=== PATIENT | female | born 1955 | race Caucasian/White ===

== ENCOUNTER 2019-07-02 14:35 | Inpatient (IN) | payer OTHER, SELFPAY ==
[2019-07-02 14:42] LABS: O2 DELIVERY DEVICE ROOM AIR
[2019-07-02 15:01] LABS: BICARBONATE,ARTERIAL 19.5 mm/L (22.0-26.0); O2 SATURATION ARTERIAL 80 % (95-98); PCO2 ARTERIAL 29 mm/Hg0 (35-45); PO2 ARTERIAL 41 mm/Hg (80-100)
[2019-07-02 15:16] LABS: CHLORIDE,CL 96 mEq/L (98-106); SODIUM,NA 132 mEq/L (136-145)
[2019-07-02] MEDS ORDERED: Sodium Chloride 0.9% 10 ML Syringe FLUSH PRN (16:24)
[2019-07-02] MEDS ORDERED: Enoxaparin 40 MG/0.4 ML Syringe SUBCUT SCH (16:30)
[2019-07-02] MEDS ORDERED: Iopamidol 755 Mg/ML 100 ML Bottle IVPUSH ONE (16:45)
[2019-07-02] MEDS ORDERED: Fluconazole 100 MG Tab PO SCH (16:45)
[2019-07-02] MEDS: cefTRIAXone 1 GM Vial IVPUSH SCH (17:48)
[2019-07-02] MEDS: Azithromycin 500 MG in Sodium Chloride 0.9% 250 ML IV SCH (17:50)
[2019-07-02] MEDS: Acetaminophen 325 MG Tab PO PRN (17:53)
[2019-07-02] MEDS: Albuterol/Ipratropium 3.0-0.5 MG/3 ML Neb Soln NEB PRN (18:44)
[2019-07-02] MEDS: Pantoprazole 40 MG Vial IVPUSH SCH (19:39)
[2019-07-02] MEDS: Ibuprofen 200 MG Tab PO PRN (20:52)
[2019-07-03] MEDS ORDERED: Sodium Chloride 0.9% 1,000 ML IV ONE (00:30)
[2019-07-03] MEDS: Sodium Chloride 0.9% 1,000 ML IV SCH ×3 (00:31→19:47)
[2019-07-03] MEDS ORDERED: Sodium Chloride 0.9% 1,000 ML IV SCH (04:30)
[2019-07-03] MEDS: Fluconazole 100 MG Tab PO SCH (07:38)
[2019-07-03] MEDS: Pantoprazole 40 MG Vial IVPUSH SCH ×2 (07:38→19:50)
[2019-07-03] MEDS: Albuterol/Ipratropium 3.0-0.5 MG/3 ML Neb Soln NEB PRN ×2 (08:34→19:55)
[2019-07-03] MEDS: cefTRIAXone 1 GM Vial IVPUSH SCH (17:33)
[2019-07-03] MEDS: Azithromycin 500 MG in Sodium Chloride 0.9% 250 ML IV SCH (17:34)
--- NOTE | 2019-07-03 21:05 | PCM.PN ---
- General Info Date of Service: 07/03/19 Admission Dx/Problem (Free Text): Pneumonia Functional Status: Reports: Pain Controlled, Tolerating Diet. Denies: Ambulating - Review of Systems General: Reports: Weakness, Fatigue HEENT: Reports: No Symptoms Pulmonary: Reports: Shortness of Breath, Cough, Sputum Cardiovascular: Denies: Chest Pain, Edema, Lightheadedness Gastrointestinal: Denies: Abdominal Pain, Nausea, Vomiting Genitourinary: Reports: No Symptoms Musculoskeletal: Reports: No Symptoms Skin: Reports: No Symptoms Neurological: Reports: Weakness - Patient Data Vitals - Most Recent: Last Vital Signs Temp 99.2 F 07/03/19 16:00 Pulse 82 07/03/19 16:00 Resp 18 07/03/19 16:00 BP 86/52 L 07/03/19 16:00 Pulse Ox 94 L 07/03/19 16:00 Weight - Most Recent: 138 lb 12.8 oz I&O - Last 24 Hours: Intake & Output 07/03/19 07/03/19 07/03/19 06:59 14:59 22:59 Intake Total 150 1025 1600 Output Total 1050 700 900 Balance -900 325 700 Lab Results Last 24 Hours: Laboratory Results - last 24 hr 07/03/19 07/03/19 07/03/19 Range/Units 07:10 07:10 10:10 WBC 17.7 H (5.0-10.0) 10^3/uL RBC 3.56 L (4.00-5.50) 10^6/uL Hgb 11.1 L (12.0-16.0) g/dL Hct 34.6 L (37.0-47.0) % MCV 97.2 H (82.0-94.0) fL MCH 31.2 (27.0-32.0) pg MCHC 32.1 L (33.0-38.0) g/dL RDW Coeff of Geoff 13.9 (11.0-15.0) % Plt Count 263 (150-400) 10^3/uL Neut % (Auto) 87.0 H (35-85) % Lymph % (Auto) 8.8 L (10-55) % [place] % (Auto) 4.0 (0-16) % Eos % (Auto) 0.1 (0-5) % Baso % (Auto) 0.1 (0-3) % Neut # (Auto) 15.38 H (1.80-7.00) 10^3/uL Lymph # (Auto) 1.56 (1.00-4.80) 10^3/uL [place] # (Auto) 0.71 (0.00-0.80) 10^3/uL Eos # (Auto) 0.01 (0.00-0.45) 10^3/uL Baso # (Auto) 0.01 10^3/uL Sodium 136 (136-145) mEq/L Potassium 3.4 L (3.5-5.0) mEq/L Chloride 102 (98-106) mEq/L Carbon Dioxide 28 (21-32) mmol/L BUN 9 (7-18) mg/dL Creatinine 1.0 (0.6-1.0) mg/dL Est Cr Clr Drug Dosing 44.95 mL/min Estimated GFR (MDRD) 56 L (>=60) mL/min Glucose 88 (75-99) mg/dL Lactic Acid 2.1 H (0.4-2.0) mmol/L Calcium 8.4 (8.4-10.1) mg/dL C-Reactive Protein 19.6 H (0.2-0.8) mg/dL Saleem Results Last 24 Hours: Microbiology 07/02/19 15:42 Aerobic Blood Culture - Preliminary Blood NO GROWTH AFTER 1 DAY Anaerobic Blood Culture - Preliminary NO GROWTH AFTER 1 DAY 07/02/19 15:42 Aerobic Blood Culture - Preliminary Blood NO GROWTH AFTER 1 DAY Anaerobic Blood Culture - Preliminary NO GROWTH AFTER 1 DAY 07/03/19 07:33 Gram Stain - Final Sputum - Expectorated 07/02/19 14:40 Influenza Type A Antigen Screen - Final Nasopharyngeal Swab NEGATIVE INFLUENZA A VIRUS AG REFERENCE RANGE: NEGATIVE Influenza Type B Antigen Screen - Final NEGATIVE INFLUENZA B VIRUS AG REFERENCE RANGE: NEGATIVE Med Orders - Current: Current Medications Acetaminophen (Tylenol) 650 mg PO Q4H PRN PRN Reason: Pain (Mild 1-3)/fever Last Admin: 07/02/19 17:53 Dose: 650 mg Albuterol/Ipratropium (Duoneb 3.0-0.5 Mg/3 Ml) 3 ml NEB Q4H PRN PRN Reason: Shortness Of Breath/wheezing Last Admin: 07/03/19 19:55 Dose: 3 ml Ceftriaxone Sodium (Rocephin) 1 gm IVPUSH Q24H [facility] Stop: 07/08/19 23:00 Last Admin: 07/03/19 17:33 Dose: 1 gm Fluconazole (Diflucan) 100 mg PO DAILY [facility] Stop: 07/07/19 08:01 Last Admin: 07/03/19 07:38 Dose: 100 mg Azithromycin 500 mg/ Sodium (Chloride) 250 mls @ 250 mls/hr IV Q24H [facility] Stop: 07/08/19 17:31 Last Admin: 07/03/19 17:34 Dose: 250 mls/hr Sodium Chloride (Normal Saline) 1,000 mls @ 100 mls/hr IV ASDIRECTED [facility] Last Admin: 07/03/19 19:47 Dose: 100 mls/hr Ibuprofen (Motrin) 400 - 600 mg PO Q6H PRN PRN Reason: Pain/Fever Last Admin: 07/02/19 20:52 Dose: 600 mg Pantoprazole Sodium (Protonix Iv) 40 mg IVPUSH Q12H [facility] Last Admin: 07/03/19 19:50 Dose: 40 mg Sodium Chloride (Saline Flush) 10 ml FLUSH ASDIRECTED PRN PRN Reason: Keep Vein Open Discontinued Medications Enoxaparin Sodium (Lovenox) 40 mg SUBCUT Q24H [facility] Last Admin: 07/02/19 17:07 Dose: Not Given Fluconazole (Diflucan) 100 mg PO DAILY [facility] Stop: 07/06/19 08:01 Last Admin: 07/02/19 17:37 Dose: Not Given Sodium Chloride (Normal Saline) 1,000 mls @ 100 mls/hr IV ASDIRECTED [facility] Iopamidol (Isovue-370 (76%)) 100 ml IVPUSH ONETIME ONE Stop: 07/02/19 16:46 Last Admin: 07/02/19 17:45 Dose: 100 ml - Exam General: Alert, Oriented HEENT: Mucous Membr. Moist/[place] Neck: Supple Lungs: Decreased Breath Sounds, Crackles Cardiovascular: Regular Rate, Regular Rhythm GI/Abdominal Exam: Normal Bowel Sounds, Soft, Non-Tender Extremities: Normal Inspection, No Pedal Edema Skin: Warm, Dry Neurological: No New Focal Deficit Sepsis Event Note - Evaluation Sepsis Screening Result: No Definite Risk - Focused Exam Vital Signs: Vital Signs Temp Pulse Resp BP Pulse Ox 07/03/19 16:00 99.2 F 82 18 86/52 L 94 L 07/03/19 12:00 99.1 F 85 18 82/56 L 95 Date Exam was Performed: 07/03/19 Time Exam was Performed: 21:00 - Problem List & Annotations (1) Pneumonia SNOMED Code(s): 860725111 Code(s): J18.9 - PNEUMONIA, UNSPECIFIED ORGANISM Status: Acute Priority: High Current Visit: Yes Qualifiers: Pneumonia type: due to other aerobic Gram-negative bacteria Laterality: right Lung location: lower lobe of lung Qualified Code(s): J15.6 - Pneumonia due to other Gram-negative bacteria - Problem List Review Problem List Initiated/Reviewed/Updated: Yes - My Orders Last 24 Hours: My Active Orders 07/03/19 00:30 Sodium Chloride 0.9% [Normal Saline] 1,000 ml IV ASDIRECTED 07/04/19 09:00 Head Neck Soft Tissue Bi [US] Routine - Assessment Assessment:: RLL pneumonia Thyroid Mass - Plan Plan:: Patient continues to feel short of breath, has frequent cough, productive of thick sputum. Has significant activity intolerance. Is able to ambulate short distances but does tire easily. Lung sounds diminished, crackles noted in the bases. Oxygen on at 4 liters now, sats 92-93%. AFebrile. Patient did have low blood pressure during the night, 75/47, was given fluid bolus. Continue IV fluids at 100 ml/hr. Blood pressure this am, 80s/50s. WBC 17.7. CRP 19.6. Electrolytes normal. CT scan to rule out PE was done yesterday. Negative for PE. Does show large thyroid mass, hilar lymphadenopathy. Proceed with IV antibiotics, fluids. Obtain thyroid ultrasound. Check lactic acid. REpeat labs in am. Continue nebs.
[2019-07-03] MEDS: Ibuprofen 200 MG Tab PO PRN (23:00)
[2019-07-04] MEDS: Sodium Chloride 0.9% 1,000 ML IV SCH ×2 (05:40→16:50)
[2019-07-04 07:31] LABS: CHLORIDE,CL 105 mEq/L (98-106); SODIUM,NA 138 mEq/L (136-145)
[2019-07-04] MEDS: Pantoprazole 40 MG Vial IVPUSH SCH ×2 (07:33→20:01)
[2019-07-04] MEDS: Fluconazole 100 MG Tab PO SCH (07:34)
[2019-07-04] MEDS ORDERED: Albuterol/Ipratropium 3.0-0.5 MG/3 ML Neb Soln NEB PRN (08:41)
--- NOTE | 2019-07-04 09:02 | PCM.PN ---
- General Info Date of Service: 07/04/19 Admission Dx/Problem (Free Text): Pneumonia Functional Status: Reports: Pain Controlled, Tolerating Diet, Ambulating - Review of Systems General: Reports: Fever (low grade), Weakness, Fatigue, Malaise HEENT: Reports: Sinus Congestion Pulmonary: Reports: Shortness of Breath, Cough, Sputum, Wheezing Cardiovascular: Denies: Chest Pain, Edema, Lightheadedness Gastrointestinal: Denies: Abdominal Pain, Nausea, Vomiting Genitourinary: Reports: No Symptoms Musculoskeletal: Reports: No Symptoms Skin: Reports: No Symptoms Neurological: Reports: Weakness - Patient Data Vitals - Most Recent: Last Vital Signs Temp 97.3 F 07/04/19 08:00 Pulse 65 07/04/19 08:00 Resp 18 07/04/19 08:00 BP 87/45 L 07/04/19 08:00 Pulse Ox 100 07/04/19 08:00 Weight - Most Recent: 138 lb 12.8 oz I&O - Last 24 Hours: Intake & Output 07/03/19 07/04/19 07/04/19 22:59 06:59 14:59 Intake Total 1600 1848 Output Total 900 1250 Balance 700 598 Lab Results Last 24 Hours: Laboratory Results - last 24 hr 07/03/19 07/04/19 07/04/19 Range/Units 10:10 06:55 06:55 WBC 10.4 H (5.0-10.0) 10^3/uL RBC 3.20 L (4.00-5.50) 10^6/uL Hgb 10.0 L (12.0-16.0) g/dL Hct 31.9 L (37.0-47.0) % MCV 99.7 H (82.0-94.0) fL MCH 31.3 (27.0-32.0) pg MCHC 31.3 L (33.0-38.0) g/dL RDW Coeff of Geoff 14.3 (11.0-15.0) % Plt Count 196 (150-400) 10^3/uL Neut % (Auto) 75.6 (35-85) % Lymph % (Auto) 18.3 (10-55) % [place] % (Auto) 5.4 (0-16) % Eos % (Auto) 0.6 (0-5) % Baso % (Auto) 0.1 (0-3) % Neut # (Auto) 7.87 H (1.80-7.00) 10^3/uL Lymph # (Auto) 1.91 (1.00-4.80) 10^3/uL [place] # (Auto) 0.56 (0.00-0.80) 10^3/uL Eos # (Auto) 0.06 (0.00-0.45) 10^3/uL Baso # (Auto) 0.01 10^3/uL Sodium 138 (136-145) mEq/L Potassium 3.5 (3.5-5.0) mEq/L Chloride 105 (98-106) mEq/L Carbon Dioxide 27 (21-32) mmol/L BUN 6 L (7-18) mg/dL Creatinine 0.8 (0.6-1.0) mg/dL Est Cr Clr Drug Dosing 56.19 mL/min Estimated GFR (MDRD) > 60 (>=60) mL/min Glucose 88 (75-99) mg/dL Lactic Acid 2.1 H (0.4-2.0) mmol/L Calcium 8.2 L (8.4-10.1) mg/dL C-Reactive Protein 15.0 H (0.2-0.8) mg/dL Saleem Results Last 24 Hours: Microbiology 07/02/19 15:42 Aerobic Blood Culture - Preliminary Blood NO GROWTH AFTER 1 DAY Anaerobic Blood Culture - Preliminary NO GROWTH AFTER 1 DAY 07/02/19 15:42 Aerobic Blood Culture - Preliminary Blood NO GROWTH AFTER 1 DAY Anaerobic Blood Culture - Preliminary NO GROWTH AFTER 1 DAY 07/03/19 07:33 Gram Stain - Final Sputum - Expectorated Med Orders - Current: Current Medications Acetaminophen (Tylenol) 650 mg PO Q4H PRN PRN Reason: Pain (Mild 1-3)/fever Last Admin: 07/02/19 17:53 Dose: 650 mg Albuterol/Ipratropium (Duoneb 3.0-0.5 Mg/3 Ml) 3 ml NEB Q4H PRN PRN Reason: Dyspnea Albuterol/Ipratropium (Duoneb 3.0-0.5 Mg/3 Ml) 3 ml NEB QID [facility] Ceftriaxone Sodium (Rocephin) 1 gm IVPUSH Q24H [facility] Stop: 07/08/19 23:00 Last Admin: 07/03/19 17:33 Dose: 1 gm Fluconazole (Diflucan) 100 mg PO DAILY [facility] Stop: 07/07/19 08:01 Last Admin: 07/04/19 07:34 Dose: 100 mg Azithromycin 500 mg/ Sodium (Chloride) 250 mls @ 250 mls/hr IV Q24H [facility] Stop: 07/08/19 17:31 Last Admin: 07/03/19 17:34 Dose: 250 mls/hr Sodium Chloride (Normal Saline) 1,000 mls @ 100 mls/hr IV ASDIRECTED [facility] Last Admin: 07/04/19 05:40 Dose: 100 mls/hr Ibuprofen (Motrin) 400 - 600 mg PO Q6H PRN PRN Reason: Pain/Fever Last Admin: 07/03/19 23:00 Dose: 600 mg Pantoprazole Sodium (Protonix Iv) 40 mg IVPUSH Q12H [facility] Last Admin: 07/04/19 07:33 Dose: 40 mg Sodium Chloride (Saline Flush) 10 ml FLUSH ASDIRECTED PRN PRN Reason: Keep Vein Open Discontinued Medications Albuterol/Ipratropium (Duoneb 3.0-0.5 Mg/3 Ml) 3 ml NEB Q4H PRN PRN Reason: Shortness Of Breath/wheezing Last Admin: 07/03/19 19:55 Dose: 3 ml Enoxaparin Sodium (Lovenox) 40 mg SUBCUT Q24H [facility] Last Admin: 07/02/19 17:07 Dose: Not Given Fluconazole (Diflucan) 100 mg PO DAILY [facility] Stop: 07/06/19 08:01 Last Admin: 07/02/19 17:37 Dose: Not Given Sodium Chloride (Normal Saline) 1,000 mls @ 100 mls/hr IV ASDIRECTED [facility] Iopamidol (Isovue-370 (76%)) 100 ml IVPUSH ONETIME ONE Stop: 07/02/19 16:46 Last Admin: 07/02/19 17:45 Dose: 100 ml - Exam Quality Assessment: Supplemental Oxygen General: Alert, Oriented HEENT: Mucous Membr. Moist/[place] Neck: Supple Lungs: Decreased Breath Sounds, Crackles, Wheezing Cardiovascular: Regular Rate, Regular Rhythm GI/Abdominal Exam: Normal Bowel Sounds, Soft, Non-Tender Extremities: Normal Inspection, No Pedal Edema Skin: Warm, Dry Neurological: No New Focal Deficit Sepsis Event Note - Evaluation Sepsis Screening Result: No Definite Risk - Focused Exam Vital Signs: Vital Signs Temp Temp Pulse Resp BP Pulse Ox 07/04/19 08:00 97.3 F 65 18 87/45 L 100 07/04/19 04:00 97.8 F 74 16 103/63 95 07/04/19 00:00 99.2 F 99.2 F 07/03/19 23:00 99.3 F 99.3 F 92 16 110/57 L 91 L Date Exam was Performed: 07/04/19 Time Exam was Performed: 08:56 - Problem List & Annotations (1) Pneumonia SNOMED Code(s): 993850698 Code(s): J18.9 - PNEUMONIA, UNSPECIFIED ORGANISM Status: Acute Priority: High Current Visit: Yes Qualifiers: Pneumonia type: due to other aerobic Gram-negative bacteria Laterality: right Lung location: lower lobe of lung Qualified Code(s): J15.6 - Pneumonia due to other Gram-negative bacteria - Problem List Review Problem List Initiated/Reviewed/Updated: Yes - My Orders Last 24 Hours: My Active Orders 07/04/19 08:41 Albuterol/Ipratropium [DuoNeb 3.0-0.5 MG/3 ML] 3 ml NEB Q4H PRN 07/04/19 08:42 Consult to Physical Therapy [PT Evaluation and Treatment] [CONS] Routine 07/04/19 09:00 Head Neck Soft Tissue Bi [US] Routine methylPREDNISolone Sod Succ [Solu-MEDROL] 62.5 mg IVPUSH Q12H 07/04/19 12:00 Albuterol/Ipratropium [DuoNeb 3.0-0.5 MG/3 ML] 3 ml NEB QID 07/05/19 05:11 BASIC METABOLIC PANEL,BMP [CHEM] AM C-REACTIVE PROTEIN [CHEM] AM CBC WITH AUTO DIFF [HEME] AM - Assessment Assessment:: RLL pneumonia Thyroid Mass - Plan Plan:: Patient continues to feel short of breath, has frequent cough, productive of thick sputum. Has significant activity intolerance. Is able to ambulate short distances but does tire easily. Lung sounds diminished, crackles noted in the bases. Oxygen on at 4 liters now, sats 92-93%. AFebrile. Patient did have low blood pressure during the night, 75/47, was given fluid bolus. Continue IV fluids at 100 ml/hr. Blood pressure this am, 80s/50s. WBC 17.7. CRP 19.6. Electrolytes normal. CT scan to rule out PE was done yesterday. Negative for PE. Does show large thyroid mass, hilar lymphadenopathy. Proceed with IV antibiotics, fluids. Obtain thyroid ultrasound. Check lactic acid. REpeat labs in am. Continue nebs. 07-04-2019 Patient feeling better today. Tolerating activity better. Does get short of breath with exertion but states improved. Oxygen down to 2 liters now, sats at 98% at rest. Lung sounds note wheezing, diminished, crackles but does have better air exchange than yesterday, less tachypneic. Low grade temps today. Blood pressure was improved during the night, this am, 87/45. WBC down to 10.4. CRP 15. Will have thyroid ultrasound this am. Lactic acid 2.1. Continue with IV antibiotics, fluids. Add Solu Medrol. Change nebs to QID. Repeat labs in am. Physical therapy eval.
[2019-07-04] MEDS: methylPREDNISolone Sodium Succinate 125 MG/2 ML SDV IVPUSH SCH ×2 (10:00→20:09)
[2019-07-04] MEDS: Albuterol/Ipratropium 3.0-0.5 MG/3 ML Neb Soln NEB SCH ×3 (11:35→19:55)
[2019-07-04] MEDS: cefTRIAXone 1 GM Vial IVPUSH SCH (16:16)
[2019-07-04] MEDS: Azithromycin 500 MG in Sodium Chloride 0.9% 250 ML IV SCH (17:37)
[2019-07-05] MEDS: Sodium Chloride 0.9% 1,000 ML IV SCH (03:51)
[2019-07-05] MEDS: Levothyroxine 150 MCG Tab PO SCH (06:21)
[2019-07-05] MEDS: Albuterol/Ipratropium 3.0-0.5 MG/3 ML Neb Soln NEB SCH ×4 (07:34→20:29)
[2019-07-05] MEDS: Fluconazole 100 MG Tab PO SCH (07:35)
[2019-07-05] MEDS: Pantoprazole 40 MG Vial IVPUSH SCH ×2 (07:37→19:27)
[2019-07-05 08:01] LABS: CHLORIDE,CL 105 mEq/L (98-106); SODIUM,NA 138 mEq/L (136-145)
[2019-07-05] MEDS ORDERED: methylPREDNISolone Sodium Succinate 125 MG/2 ML SDV IVPUSH SCH (09:00)
--- NOTE | 2019-07-05 09:12 | PCM.PN ---
- General Info Date of Service: 07/05/19 Functional Status: Reports: Pain Controlled, Tolerating Diet, Ambulating, Urinating - Review of Systems General: Reports: Weakness (general, but improving), Fatigue HEENT: Reports: No Symptoms. Denies: Post Nasal Drip, Sinus Congestion, Sore Throat Pulmonary: Reports: Shortness of Breath, Cough, Sputum, Wheezing Cardiovascular: Reports: No Symptoms Gastrointestinal: Reports: No Symptoms Genitourinary: Reports: No Symptoms Musculoskeletal: Reports: No Symptoms Skin: Reports: No Symptoms Neurological: Reports: No Symptoms Psychiatric: Reports: No Symptoms - Patient Data Vitals - Most Recent: Last Vital Signs Temp 98.2 F 07/05/19 08:00 Pulse 56 L 07/05/19 08:00 Resp 18 07/05/19 08:00 BP 168/80 H 07/05/19 08:00 Pulse Ox 96 07/05/19 08:00 Weight - Most Recent: 138 lb 12.8 oz I&O - Last 24 Hours: Intake & Output 07/04/19 07/05/19 07/05/19 22:59 06:59 14:59 Intake Total 2210 1250 Output Total 2600 1400 Balance -390 -150 Lab Results Last 24 Hours: Laboratory Results - last 24 hr 07/04/19 07/05/19 07/05/19 Range/Units 13:13 05:11 05:11 WBC 8.5 (5.0-10.0) 10^3/uL RBC 3.52 L (4.00-5.50) 10^6/uL Hgb 10.9 L (12.0-16.0) g/dL Hct 34.4 L (37.0-47.0) % MCV 97.7 H (82.0-94.0) fL MCH 31.0 (27.0-32.0) pg MCHC 31.7 L (33.0-38.0) g/dL RDW Coeff of Geoff 14.0 (11.0-15.0) % Plt Count 200 (150-400) 10^3/uL Neut % (Auto) 83.1 (35-85) % Lymph % (Auto) 12.4 (10-55) % [place] % (Auto) 4.4 (0-16) % Eos % (Auto) 0 (0-5) % Baso % (Auto) 0.1 (0-3) % Neut # (Auto) 7.02 H (1.80-7.00) 10^3/uL Lymph # (Auto) 1.05 (1.00-4.80) 10^3/uL [place] # (Auto) 0.37 (0.00-0.80) 10^3/uL Eos # (Auto) 0.00 (0.00-0.45) 10^3/uL Baso # (Auto) 0.01 10^3/uL Sodium 138 (136-145) mEq/L Potassium 4.0 (3.5-5.0) mEq/L Chloride 105 (98-106) mEq/L Carbon Dioxide 25 (21-32) mmol/L BUN 6 L (7-18) mg/dL Creatinine 0.7 (0.6-1.0) mg/dL Est Cr Clr Drug Dosing 64.21 mL/min Estimated GFR (MDRD) > 60 (>=60) mL/min Glucose 121 H D (75-99) mg/dL Calcium 9.1 (8.4-10.1) mg/dL C-Reactive Protein 4.9 H (0.2-0.8) mg/dL Free T4 0.5 L (0.8-1.6) ng/dL TSH, Ultra Sensitive 47.25 H (0.36-5.60) uIU/mL Saleem Results Last 24 Hours: Microbiology 07/03/19 07:33 Gram Stain - Final Sputum - Expectorated Sputum Culture - Final Streptococcus Agalactiae Grp B 07/02/19 15:42 Aerobic Blood Culture - Preliminary Blood NO GROWTH AFTER 2 DAYS Anaerobic Blood Culture - Preliminary NO GROWTH AFTER 2 DAYS 07/02/19 15:42 Aerobic Blood Culture - Preliminary Blood NO GROWTH AFTER 2 DAYS Anaerobic Blood Culture - Preliminary NO GROWTH AFTER 2 DAYS 07/02/19 15:26 Genital Culture - Preliminary Vagina Gram Negative Rods Med Orders - Current: Current Medications Acetaminophen (Tylenol) 650 mg PO Q4H PRN PRN Reason: Pain (Mild 1-3)/fever Last Admin: 07/02/19 17:53 Dose: 650 mg Albuterol/Ipratropium (Duoneb 3.0-0.5 Mg/3 Ml) 3 ml NEB Q4H PRN PRN Reason: Dyspnea Albuterol/Ipratropium (Duoneb 3.0-0.5 Mg/3 Ml) 3 ml NEB QIDRT [facility] Last Admin: 07/05/19 07:34 Dose: 3 ml Ceftriaxone Sodium (Rocephin) 1 gm IVPUSH Q24H [facility] Stop: 07/08/19 23:00 Last Admin: 07/04/19 16:16 Dose: 1 gm Fluconazole (Diflucan) 100 mg PO DAILY [facility] Stop: 07/07/19 08:01 Last Admin: 07/05/19 07:35 Dose: 100 mg Azithromycin 500 mg/ Sodium (Chloride) 250 mls @ 250 mls/hr IV Q24H [facility] Stop: 07/08/19 17:31 Last Admin: 07/04/19 17:37 Dose: 250 mls/hr Ibuprofen (Motrin) 400 - 600 mg PO Q6H PRN PRN Reason: Pain/Fever Last Admin: 07/03/19 23:00 Dose: 600 mg Levothyroxine Sodium (Levothyroxine) 75 mcg PO DAILY@0700 [facility] Last Admin: 07/05/19 06:21 Dose: 75 mcg Methylprednisolone Sodium Succinate (Solu-Medrol) 62.5 mg IVPUSH Q24H [facility] Pantoprazole Sodium (Protonix Iv) 40 mg IVPUSH Q12H [facility] Last Admin: 07/05/19 07:37 Dose: 40 mg Sodium Chloride (Saline Flush) 10 ml FLUSH ASDIRECTED PRN PRN Reason: Keep Vein Open Discontinued Medications Albuterol/Ipratropium (Duoneb 3.0-0.5 Mg/3 Ml) 3 ml NEB Q4H PRN PRN Reason: Shortness Of Breath/wheezing Last Admin: 07/03/19 19:55 Dose: 3 ml Enoxaparin Sodium (Lovenox) 40 mg SUBCUT Q24H [facility] Last Admin: 07/02/19 17:07 Dose: Not Given Fluconazole (Diflucan) 100 mg PO DAILY [facility] Stop: 07/06/19 08:01 Last Admin: 07/02/19 17:37 Dose: Not Given Sodium Chloride (Normal Saline) 1,000 mls @ 100 mls/hr IV ASDIRECTED [facility] Sodium Chloride (Normal Saline) 1,000 mls @ 100 mls/hr IV ASDIRECTED [facility] Last Admin: 07/05/19 03:51 Dose: 100 mls/hr Iopamidol (Isovue-370 (76%)) 100 ml IVPUSH ONETIME ONE Stop: 07/02/19 16:46 Last Admin: 07/02/19 17:45 Dose: 100 ml Methylprednisolone Sodium Succinate (Solu-Medrol) 62.5 mg IVPUSH Q12H [facility] Last Admin: 07/04/19 20:09 Dose: 62.5 mg Methylprednisolone Sodium Succinate (Solu-Medrol) 125 mg IVPUSH Q24H [facility] - Exam Quality Assessment: Supplemental Oxygen (2L [place], 96%.) General: Alert, Oriented, Cooperative HEENT: Pupils Equal, Pupils Reactive, Mucous Membr. Moist/[place] Neck: Supple, Trachea Midline, No JVD Lungs: Rhonchi Cardiovascular: Regular Rate, Regular Rhythm, Murmurs GI/Abdominal Exam: Soft, Non-Tender Back Exam: Normal Inspection, Full Range of Motion Extremities: Normal Inspection, Normal Range of Motion, Non-Tender, No Pedal Edema, Normal Capillary Refill Peripheral Pulses: 2+: Radial (L), Radial (R), Posterior Tibial (L), Posterior Tibial (R), Dorsalis Pedis (L), Dorsalis Pedis (R) Skin: Warm, Dry, Intact Neurological: No New Focal Deficit Psy/Mental Status: Alert, Normal Affect, Normal Mood Sepsis Event Note - Evaluation Sepsis Screening Result: No Definite Risk - Focused Exam Vital Signs: Vital Signs Temp Pulse Resp BP Pulse Ox 07/05/19 08:00 98.2 F 56 L 18 168/80 H 96 07/05/19 04:00 97.8 F 62 16 148/77 H 97 07/04/19 23:48 98.6 F 64 16 134/67 96 Date Exam was Performed: 07/05/19 Time Exam was Performed: 09:06 - Problem List Review Problem List Initiated/Reviewed/Updated: Yes - My Orders Last 24 Hours: My Active Orders 07/05/19 09:00 methylPREDNISolone Sod Succ [Solu-MEDROL] 62.5 mg IVPUSH Q24H 07/06/19 05:00 BASIC METABOLIC PANEL,BMP [CHEM] DAILY CBC W/O DIFF,HEMOGRAM [HEME] DAILY CRP [C-REACTIVE PROTEIN] [CHEM] DAILY 07/07/19 05:00 BASIC METABOLIC PANEL,BMP [CHEM] DAILY CBC W/O DIFF,HEMOGRAM [HEME] DAILY CRP [C-REACTIVE PROTEIN] [CHEM] DAILY - Assessment Assessment:: RLL pneumonia Thyroid Mass - Plan Plan:: Patient continues to feel short of breath, has frequent cough, productive of thick sputum. Has significant activity intolerance. Is able to ambulate short distances but does tire easily. Lung sounds diminished, crackles noted in the bases. Oxygen on at 4 liters now, sats 92-93%. AFebrile. Patient did have low blood pressure during the night, 75/47, was given fluid bolus. Continue IV fluids at 100 ml/hr. Blood pressure this am, 80s/50s. WBC 17.7. CRP 19.6. Electrolytes normal. CT scan to rule out PE was done yesterday. Negative for PE. Does show large thyroid mass, hilar lymphadenopathy. Proceed with IV antibiotics, fluids. Obtain thyroid ultrasound. Check lactic acid. REpeat labs in am. Continue nebs. 07-04-2019 Patient feeling better today. Tolerating activity better. Does get short of breath with exertion but states improved. Oxygen down to 2 liters now, sats at 98% at rest. Lung sounds note wheezing, diminished, crackles but does have better air exchange than yesterday, less tachypneic. Low grade temps today. Blood pressure was improved during the night, this am, 87/45. WBC down to 10.4. CRP 15. Will have thyroid ultrasound this am. Lactic acid 2.1. Continue with IV antibiotics, fluids. Add Solu Medrol. Change nebs to QID. Repeat labs in am. Physical therapy eval. 07/05/2019 0820am Patient reports she is feeling better today, She reports that she is urinating a lot, but drinking a lot of water. I will dc her fluids. Patient also questions how long she will be on the thyroid medication. We discussed this at great length and educated her on the medication, diagnosis, and risk vs benefits. She now understands. Patient reports the steroids make her jittery and she was not able to sleep last night because of them at bedtime. I changed this to daily in the AM. Patient labs are unremarkable. Her CPR is elevated over 4. Patient is a smoker, will check to see if she has a nicotine patch ordered. Will continue admit and see tomorrow. Expect patient will stay until Sunday or Sunday. She is on 2L NC at 96%.
[2019-07-05] MEDS ORDERED: Nicotine 21 MG/24 Hr Patch TRDERM SCH (09:15)
[2019-07-05] MEDS: methylPREDNISolone Sodium Succinate 125 MG/2 ML SDV IVPUSH SCH (09:31)
[2019-07-05] MEDS: cefTRIAXone 1 GM Vial IVPUSH SCH (16:30)
[2019-07-05] MEDS: Azithromycin 500 MG in Sodium Chloride 0.9% 250 ML IV SCH (17:13)
[2019-07-05] MEDS: Acetaminophen 325 MG Tab PO PRN (20:29)
[2019-07-06] MEDS: Levothyroxine 150 MCG Tab PO SCH (06:43)
[2019-07-06] MEDS: Albuterol/Ipratropium 3.0-0.5 MG/3 ML Neb Soln NEB SCH ×4 (07:42→20:15)
[2019-07-06] MEDS: Pantoprazole 40 MG Vial IVPUSH SCH ×2 (07:42→20:10)
[2019-07-06] MEDS: Fluconazole 100 MG Tab PO SCH (07:42)
[2019-07-06 08:15] LABS: CHLORIDE,CL 103 mEq/L (98-106); SODIUM,NA 139 mEq/L (136-145)
[2019-07-06] MEDS: methylPREDNISolone Sodium Succinate 125 MG/2 ML SDV IVPUSH SCH (09:45)
[2019-07-06] MEDS: cefTRIAXone 1 GM Vial IVPUSH SCH (16:16)
[2019-07-06] MEDS: Azithromycin 500 MG in Sodium Chloride 0.9% 250 ML IV SCH (17:03)
--- NOTE | 2019-07-06 20:28 | PCM.PN ---
- General Info Date of Service: 07/06/19 Functional Status: Reports: Pain Controlled, Tolerating Diet, Ambulating, Urinating - Review of Systems General: Reports: No Symptoms. Denies: Fever, Weakness, Fatigue, Malaise HEENT: Reports: No Symptoms Pulmonary: Reports: Cough (improved, mild. ), Sputum. Denies: Shortness of Breath Cardiovascular: Reports: No Symptoms Gastrointestinal: Reports: No Symptoms Genitourinary: Reports: No Symptoms Musculoskeletal: Reports: No Symptoms Skin: Reports: No Symptoms Neurological: Reports: No Symptoms Psychiatric: Reports: No Symptoms - Patient Data Vitals - Most Recent: Last Vital Signs Temp 98.2 F 07/06/19 16:00 Pulse 61 07/06/19 16:00 Resp 20 07/06/19 16:00 BP 150/71 H 07/06/19 16:00 Pulse Ox 95 07/06/19 16:00 Weight - Most Recent: 138 lb 12.8 oz I&O - Last 24 Hours: Intake & Output 07/06/19 07/06/19 07/06/19 06:59 14:59 22:59 Intake Total 800 1730 Output Total 1500 2100 Balance -700 -370 Lab Results Last 24 Hours: Laboratory Results - last 24 hr 07/06/19 07/06/19 Range/Units 05:00 05:00 WBC 12.9 H (5.0-10.0) 10^3/uL RBC 3.63 L (4.00-5.50) 10^6/uL Hgb 11.0 L (12.0-16.0) g/dL Hct 35.0 L (37.0-47.0) % MCV 96.4 H (82.0-94.0) fL MCH 30.3 (27.0-32.0) pg MCHC 31.4 L (33.0-38.0) g/dL RDW Coeff of Geoff 14.0 (11.0-15.0) % Plt Count 177 (150-400) 10^3/uL MPV 10.1 fL Sodium 139 (136-145) mEq/L Potassium 3.4 L (3.5-5.0) mEq/L Chloride 103 (98-106) mEq/L Carbon Dioxide 28 (21-32) mmol/L BUN 9 (7-18) mg/dL Creatinine 0.8 (0.6-1.0) mg/dL Est Cr Clr Drug Dosing 56.19 mL/min Estimated GFR (MDRD) > 60 (>=60) mL/min Glucose 74 L D (75-99) mg/dL Calcium 9.1 (8.4-10.1) mg/dL C-Reactive Protein 1.7 H (0.2-0.8) mg/dL Saleem Results Last 24 Hours: Microbiology 07/02/19 15:42 Aerobic Blood Culture - Preliminary Blood NO GROWTH AFTER 4 DAYS Anaerobic Blood Culture - Preliminary NO GROWTH AFTER 4 DAYS 07/02/19 15:42 Aerobic Blood Culture - Preliminary Blood NO GROWTH AFTER 4 DAYS Anaerobic Blood Culture - Preliminary NO GROWTH AFTER 4 DAYS 07/02/19 15:26 Genital Culture - Final Vagina Escherichia Coli Med Orders - Current: Current Medications Acetaminophen (Tylenol) 650 mg PO Q4H PRN PRN Reason: Pain (Mild 1-3)/fever Last Admin: 07/05/19 20:29 Dose: 650 mg Albuterol/Ipratropium (Duoneb 3.0-0.5 Mg/3 Ml) 3 ml NEB Q4H PRN PRN Reason: Dyspnea Albuterol/Ipratropium (Duoneb 3.0-0.5 Mg/3 Ml) 3 ml NEB QIDRT [facility] Last Admin: 07/06/19 20:15 Dose: 3 ml Ceftriaxone Sodium (Rocephin) 1 gm IVPUSH Q24H [facility] Stop: 07/08/19 23:00 Last Admin: 07/06/19 16:16 Dose: 1 gm Fluconazole (Diflucan) 100 mg PO DAILY [facility] Stop: 07/07/19 08:01 Last Admin: 07/06/19 07:42 Dose: 100 mg Azithromycin 500 mg/ Sodium (Chloride) 250 mls @ 250 mls/hr IV Q24H [facility] Stop: 07/08/19 17:31 Last Admin: 07/06/19 17:03 Dose: 250 mls/hr Ibuprofen (Motrin) 400 - 600 mg PO Q6H PRN PRN Reason: Pain/Fever Last Admin: 07/03/19 23:00 Dose: 600 mg Levothyroxine Sodium (Levothyroxine) 75 mcg PO DAILY@0700 [facility] Last Admin: 07/06/19 06:43 Dose: 75 mcg Methylprednisolone Sodium Succinate (Solu-Medrol) 62.5 mg IVPUSH Q24H [facility] Last Admin: 07/06/19 09:45 Dose: 62.5 mg Pantoprazole Sodium (Protonix Iv) 40 mg IVPUSH Q12H [facility] Last Admin: 07/06/19 20:10 Dose: 40 mg Sodium Chloride (Saline Flush) 10 ml FLUSH ASDIRECTED PRN PRN Reason: Keep Vein Open Discontinued Medications Albuterol/Ipratropium (Duoneb 3.0-0.5 Mg/3 Ml) 3 ml NEB Q4H PRN PRN Reason: Shortness Of Breath/wheezing Last Admin: 07/03/19 19:55 Dose: 3 ml Enoxaparin Sodium (Lovenox) 40 mg SUBCUT Q24H [facility] Last Admin: 07/02/19 17:07 Dose: Not Given Fluconazole (Diflucan) 100 mg PO DAILY [facility] Stop: 07/06/19 08:01 Last Admin: 07/02/19 17:37 Dose: Not Given Sodium Chloride (Normal Saline) 1,000 mls @ 100 mls/hr IV ASDIRECTED [facility] Sodium Chloride (Normal Saline) 1,000 mls @ 100 mls/hr IV ASDIRECTED [facility] Last Admin: 07/05/19 03:51 Dose: 100 mls/hr Iopamidol (Isovue-370 (76%)) 100 ml IVPUSH ONETIME ONE Stop: 07/02/19 16:46 Last Admin: 07/02/19 17:45 Dose: 100 ml Methylprednisolone Sodium Succinate (Solu-Medrol) 62.5 mg IVPUSH Q12H [facility] Last Admin: 07/04/19 20:09 Dose: 62.5 mg Methylprednisolone Sodium Succinate (Solu-Medrol) 125 mg IVPUSH Q24H [facility] Nicotine (Habitrol) 21 mg TRDERM DAILY [facility] Last Admin: 07/05/19 09:32 Dose: Not Given - Exam Quality Assessment: No: Supplemental Oxygen (now on RA) General: Alert, Oriented Neck: Supple, Trachea Midline, No JVD Lungs: Rhonchi (mild, much improved from yesterday, moving good air. ) Cardiovascular: Regular Rate, Regular Rhythm GI/Abdominal Exam: Soft, Non-Tender Back Exam: Normal Inspection Extremities: Normal Inspection, Normal Range of Motion, Non-Tender, No Pedal Edema, Normal Capillary Refill Peripheral Pulses: 2+: Radial (L), Radial (R), Posterior Tibial (L), Posterior Tibial (R), Dorsalis Pedis (L), Dorsalis Pedis (R) Skin: Warm, Dry, Intact Psy/Mental Status: Alert, Normal Affect, Normal Mood Sepsis Event Note - Evaluation Sepsis Screening Result: No Definite Risk - Focused Exam Vital Signs: Vital Signs Temp Pulse Resp BP Pulse Ox 07/06/19 16:00 98.2 F 61 20 150/71 H 95 07/06/19 12:00 97.3 F 64 20 144/80 H 93 L Date Exam was Performed: 07/06/19 Time Exam was Performed: 21:50 - Problem List Review Problem List Initiated/Reviewed/Updated: Yes - My Orders Last 24 Hours: My Active Orders 07/07/19 05:00 BASIC METABOLIC PANEL,BMP [CHEM] DAILY CBC W/O DIFF,HEMOGRAM [HEME] DAILY CRP [C-REACTIVE PROTEIN] [CHEM] DAILY - Assessment Assessment:: RLL pneumonia Thyroid Mass - Plan Plan:: Patient continues to feel short of breath, has frequent cough, productive of thick sputum. Has significant activity intolerance. Is able to ambulate short distances but does tire easily. Lung sounds diminished, crackles noted in the bases. Oxygen on at 4 liters now, sats 92-93%. AFebrile. Patient did have low blood pressure during the night, 75/47, was given fluid bolus. Continue IV fluids at 100 ml/hr. Blood pressure this am, 80s/50s. WBC 17.7. CRP 19.6. Electrolytes normal. CT scan to rule out PE was done yesterday. Negative for PE. Does show large thyroid mass, hilar lymphadenopathy. Proceed with IV antibiotics, fluids. Obtain thyroid ultrasound. Check lactic acid. REpeat labs in am. Continue nebs. 07-04-2019 Patient feeling better today. Tolerating activity better. Does get short of breath with exertion but states improved. Oxygen down to 2 liters now, sats at 98% at rest. Lung sounds note wheezing, diminished, crackles but does have better air exchange than yesterday, less tachypneic. Low grade temps today. Blood pressure was improved during the night, this am, 87/45. WBC down to 10.4. CRP 15. Will have thyroid ultrasound this am. Lactic acid 2.1. Continue with IV antibiotics, fluids. Add Solu Medrol. Change nebs to QID. Repeat labs in am. Physical therapy eval. 07/05/2019 0820am Patient reports she is feeling better today, She reports that she is urinating a lot, but drinking a lot of water. I will dc her fluids. Patient also questions how long she will be on the thyroid medication. We discussed this at great length and educated her on the medication, diagnosis, and risk vs benefits. She now understands. Patient reports the steroids make her jittery and she was not able to sleep last night because of them at bedtime. I changed this to daily in the AM. Patient labs are unremarkable. Her CPR is elevated over 4. Patient is a smoker, will check to see if she has a nicotine patch ordered. Will continue admit and see tomorrow. Expect patient will stay until Sunday or Sunday. She is on 2L NC at 96%. 07/06/2019 2015pm Patient reports that she is felling significantly better tonight. She reports that she is no longer short of breath. She reports that she has been up and ambulating throughout the hallways. She reports she still has a minimal productive cough, that has improved too. She reports that she is ready to home tomorrow. Patient has been afebrile. Patient is no longer wearing oxygen this evening. She is at 93% RA. Patient wbc today is 12.9, however she is on steroids. I expect this patient to be discharged home tomorrow.
[2019-07-07] MEDS: Levothyroxine 150 MCG Tab PO SCH (06:09)
[2019-07-07] MEDS: Albuterol/Ipratropium 3.0-0.5 MG/3 ML Neb Soln NEB SCH (07:34)
[2019-07-07] MEDS: Pantoprazole 40 MG Vial IVPUSH SCH (07:35)
[2019-07-07] MEDS: Fluconazole 100 MG Tab PO SCH (07:35)
[2019-07-07] MEDS: methylPREDNISolone Sodium Succinate 125 MG/2 ML SDV IVPUSH SCH (07:39)
[2019-07-07 07:50] LABS: CHLORIDE,CL 101 mEq/L (98-106); SODIUM,NA 139 mEq/L (136-145)
--- NOTE | 2019-07-07 19:48 | PCM.DCSUM1 ---
Discharge Summary - Hospital Course Free Text/Narrative:: Patient presented to clinic to see Rebekah Michelle with complaints of shortness of breath and vaginal discharge. Had episode of chest pain that started on day prior, lasted 15 minutes and resolved. Has had increasing shortness of breath and activity intolerance. Chest is tight, unable to get adequate amount of air in. She was found to have an oxygen saturation of 77% in clinic on room air. History of smoking. only current med is ibuprofen. Has had fevers, dry cough Also experiencing large amount of thick vaginal discharge, minimal odor. No burning or itching. Genital culture done in clinic Labs noted WBC 15.9, Sodium 132. Potassium 3.3. CRP 3.4. D-Dimer 1.03. PO2 29 on room air by ABGs. Diagnosis: Stroke: No Modified [place] Scale: No Symptoms at All Modified [place] Scale Score: 0 - Discharge Data Discharge Date: 07/07/19 Discharge Disposition: Home, Self-Care 01 Condition: Fair - Referral to Home Health Primary Care Physician: Rebekah Michelle PA-C - Discharge Diagnosis/Problem(s) (1) Pneumonia SNOMED Code(s): 114753867 ICD Code: J18.9 - PNEUMONIA, UNSPECIFIED ORGANISM Status: Acute Priority : High Qualifiers: Pneumonia type: due to group B Streptococcus Laterality: right Lung location: lower lobe of lung Qualified Code(s): J15.3 - Pneumonia due to streptococcus, group B (2) Respiratory distress SNOMED Code(s): 463438518 ICD Code: R06.03 - ACUTE RESPIRATORY DISTRESS Status: Acute Priority: High (3) E coli infection Status: Acute Priority: High - Patient Summary/Data Complications: none Consults: Consultations 07/04/19 08:42 Consult to Physical Therapy [PT Evaluation and Treatment] [CONS] Routine Hospital Course: Patient is much improved from admission. Is ambulating about in the hallways, tolerating without oxygen after having sats at 77% on admission. Sats greater than 90%, today 93% on room air. Lung sounds much improved, clear with decreased air exchange. Afebrile. Sputum did show group B streptococcus. Genital culture shows e coli, sensitive to cephalosporins as well. Patient did have elevated d-dimer on admit, CTA was negative for PE but incidentally did show a large thyroid mass. Ultrasound of the thyroid was done, benign, shows large goiter. TSH then done, noted 47.25, started on Levothyroxine 75 mcg. Labs have improved, WBC peaked at 15.9, today 12.1 but also has been on steroids. Electrolytes stable, sodium 139, potassium 3.4. CRP peaked at 19.6, now down to 1.0. Appetite is good. Smoking cessation discussed with patient. Advised of nicotine patches. Will discharge home on Ceftin for 10 days, nebulizer treatments. Follow up with Rebekah Michelle in 2 weeks. - Patient Instructions Diet: Usual Diet as Tolerated Activity: As Tolerated - Discharge Plan *PRESCRIPTION DRUG MONITORING PROGRAM REVIEWED*: No *COPY OF PRESCRIPTION DRUG MONITORING REPORT IN PATIENT JAKE: No Prescriptions/Med Rec: Albuterol/Ipratropium [DuoNeb 3.0-0.5 MG/3 ML] 3 ml NEB Q4H PRN #1 neb PRN Reason: Dyspnea Albuterol/Ipratropium [DuoNeb 3.0-0.5 MG/3 ML] 3 ml NEB QIDRT #1 box Cefuroxime Axetil [Ceftin] 250 mg PO BID #20 tablet Levothyroxine 75 mcg PO DAILY@0700 #30 tablet Home Medications: Home Meds Ibuprofen [Advil] 600 mg PO Q6HR PRN 07/02/19 [History] Albuterol/Ipratropium [DuoNeb 3.0-0.5 MG/3 ML] 3 ml NEB Q4H PRN #1 neb 07/07/19 [Rx] Albuterol/Ipratropium [DuoNeb 3.0-0.5 MG/3 ML] 3 ml NEB QIDRT #1 box 07/07/19 [ Rx] Cefuroxime Axetil [Ceftin] 250 mg PO BID #20 tablet 07/07/19 [Rx] Levothyroxine 75 mcg PO DAILY@0700 #30 tablet 07/07/19 [Rx] Patient Handouts: Community-Acquired Pneumonia, Adult - Discharge Summary/Plan Comment DC Time >30 min.: No - General Info Date of Service: 07/07/19 Admission Dx/Problem (Free Text: Pneumonia Functional Status: Reports: Pain Controlled, Tolerating Diet, Ambulating - Review of Systems General: Reports: Weakness. Denies: Fever, Fatigue, Malaise HEENT: Reports: Rhinitis Pulmonary: Reports: Shortness of Breath, Cough Cardiovascular: Denies: Chest Pain, Edema, Lightheadedness Gastrointestinal: Denies: Abdominal Pain, Nausea, Vomiting Genitourinary: Reports: No Symptoms Musculoskeletal: Reports: No Symptoms Skin: Reports: No Symptoms Neurological: Reports: No Symptoms - Patient Data Vitals - Most Recent: Last Vital Signs Temp 97.3 F 07/07/19 07:49 Pulse 56 L 07/07/19 07:49 Resp 18 07/07/19 07:49 BP 157/74 H 07/07/19 07:49 Pulse Ox 93 L 07/07/19 07:49 Weight - Most Recent: 138 lb 12.8 oz I&O - Last 24 hours: Intake & Output 07/07/19 07/07/19 07/07/19 06:59 14:59 22:59 Intake Total 500 Output Total 1850 Balance -1350 Lab Results - Last 24 hrs: Laboratory Results - last 24 hr 07/07/19 07/07/19 Range/Units 05:00 05:00 WBC 12.1 H (5.0-10.0) 10^3/uL RBC 3.67 L (4.00-5.50) 10^6/uL Hgb 11.3 L (12.0-16.0) g/dL Hct 35.0 L (37.0-47.0) % MCV 95.4 H (82.0-94.0) fL MCH 30.8 (27.0-32.0) pg MCHC 32.3 L (33.0-38.0) g/dL RDW Coeff of Geoff 13.7 (11.0-15.0) % Plt Count 262 (150-400) 10^3/uL MPV 8.6 fL Sodium 139 (136-145) mEq/L Potassium 3.4 L (3.5-5.0) mEq/L Chloride 101 (98-106) mEq/L Carbon Dioxide 27 (21-32) mmol/L BUN 8 (7-18) mg/dL Creatinine 0.7 (0.6-1.0) mg/dL Est Cr Clr Drug Dosing 64.21 mL/min Estimated GFR (MDRD) > 60 (>=60) mL/min Glucose 85 (75-99) mg/dL Calcium 8.8 (8.4-10.1) mg/dL C-Reactive Protein 1.0 H (0.2-0.8) mg/dL PADMINI Results - Last 24 hrs: Microbiology 07/02/19 15:42 Aerobic Blood Culture - Final Blood NO GROWTH AFTER 5 DAYS Anaerobic Blood Culture - Final NO GROWTH AFTER 5 DAYS 07/02/19 15:42 Aerobic Blood Culture - Final Blood NO GROWTH AFTER 5 DAYS Anaerobic Blood Culture - Final NO GROWTH AFTER 5 DAYS Med Orders - Current: Current Medications Discontinued Medications Acetaminophen (Tylenol) 650 mg PO Q4H PRN PRN Reason: Pain (Mild 1-3)/fever Last Admin: 07/05/19 20:29 Dose: 650 mg Albuterol/Ipratropium (Duoneb 3.0-0.5 Mg/3 Ml) 3 ml NEB Q4H PRN PRN Reason: Shortness Of Breath/wheezing Last Admin: 07/03/19 19:55 Dose: 3 ml Albuterol/Ipratropium (Duoneb 3.0-0.5 Mg/3 Ml) 3 ml NEB Q4H PRN PRN Reason: Dyspnea Albuterol/Ipratropium (Duoneb 3.0-0.5 Mg/3 Ml) 3 ml NEB QIDRT [facility] Last Admin: 07/07/19 07:34 Dose: 3 ml Ceftriaxone Sodium (Rocephin) 1 gm IVPUSH Q24H [facility] Stop: 07/08/19 23:00 Last Admin: 07/06/19 16:16 Dose: 1 gm Enoxaparin Sodium (Lovenox) 40 mg SUBCUT Q24H [facility] Last Admin: 07/02/19 17:07 Dose: Not Given Fluconazole (Diflucan) 100 mg PO DAILY [facility] Stop: 07/06/19 08:01 Last Admin: 07/02/19 17:37 Dose: Not Given Fluconazole (Diflucan) 100 mg PO DAILY [facility] Stop: 07/07/19 08:01 Last Admin: 07/07/19 07:35 Dose: 100 mg Azithromycin 500 mg/ Sodium (Chloride) 250 mls @ 250 mls/hr IV Q24H [facility] Stop: 07/08/19 17:31 Last Admin: 07/06/19 17:03 Dose: 250 mls/hr Sodium Chloride (Normal Saline) 1,000 mls @ 100 mls/hr IV ASDIRECTED [facility] Sodium Chloride (Normal Saline) 1,000 mls @ 100 mls/hr IV ASDIRECTED [facility] Last Admin: 07/05/19 03:51 Dose: 100 mls/hr Ibuprofen (Motrin) 400 - 600 mg PO Q6H PRN PRN Reason: Pain/Fever Last Admin: 07/03/19 23:00 Dose: 600 mg Iopamidol (Isovue-370 (76%)) 100 ml IVPUSH ONETIME ONE Stop: 07/02/19 16:46 Last Admin: 07/02/19 17:45 Dose: 100 ml Levothyroxine Sodium (Levothyroxine) 75 mcg PO DAILY@0700 [facility] Last Admin: 07/07/19 06:09 Dose: 75 mcg Methylprednisolone Sodium Succinate (Solu-Medrol) 62.5 mg IVPUSH Q12H [facility] Last Admin: 07/04/19 20:09 Dose: 62.5 mg Methylprednisolone Sodium Succinate (Solu-Medrol) 125 mg IVPUSH Q24H [facility] Methylprednisolone Sodium Succinate (Solu-Medrol) 62.5 mg IVPUSH Q24H [facility] Last Admin: 07/07/19 07:39 Dose: 62.5 mg Nicotine (Habitrol) 21 mg TRDERM DAILY [facility] Last Admin: 07/05/19 09:32 Dose: Not Given Pantoprazole Sodium (Protonix Iv) 40 mg IVPUSH Q12H [facility] Last Admin: 07/07/19 07:35 Dose: 40 mg Sodium Chloride (Saline Flush) 10 ml FLUSH ASDIRECTED PRN PRN Reason: Keep Vein Open - Exam General: Reports: Alert, Oriented HEENT: Reports: Mucous Membr. Moist/[place] Neck: Reports: Supple Lungs: Reports: Decreased Breath Sounds Cardiovascular: Reports: Regular Rate, Regular Rhythm GI/Abdominal Exam: Normal Bowel Sounds, Soft, Non-Tender Extremities: Normal Inspection, No Pedal Edema Skin: Reports: Warm, Dry Neurological: Reports: No New Focal Deficit
== END 2019-07-07 09:45 | disposition home or self-care (01) | DRG 179 ==
LOC: CC.FCMC 14:35 → UNDOADMIN 15:40 → CC.MS 15:40
PROVIDERS: ADMIT Physician Assistant Medical; ATTEND Family Medicine
DX: J15.6 Pneumonia due to other Gram-negative bacteria (principal); M19.90 Unspecified osteoarthritis, unspecified site; N76.0 Acute vaginitis; B96.20 Unspecified Escherichia coli [E. coli] as the cause of diseases classified elsewhere; E04.9 Nontoxic goiter, unspecified; Z71.6 Tobacco abuse counseling; Z90.49 Acquired absence of other specified parts of digestive tract
CPT/HCPCS: 36415; 36600; 71046; 71275; 76536; 80048; 80053; 81001; 82550; 82803; 83605; 83615; 84439; 84443; 84484; 85025; 85027; 85379; 86140; 87040; 87070; 87077; 87186; 87205; 87210; 87804; 93005; 94640; 97161-GP; A9270-GY; C9113; J0456; J0696; J2930; J7030; J7050; J7620-GY; Q9967

== ENCOUNTER 2024-04-26 10:47 | Emergency (ER) | payer MEDICARE ==
[2024-04-26] MEDS: Albuterol/Ipratropium 3.0-0.5 MG/3 ML Neb Soln NEB ONE (10:56)
[2024-04-26 11:11] LABS: BASOPHILS ABSOLUTE AUTO 0.07 10^3/uL (0.00-0.50); BASOPHILS PERCENT AUTO 0.4 % (0-1); EOSINOPHILS ABSOLUTE AUTO 0.44 10^3/uL (0.00-1.50); EOSINOPHILS PERCENT AUTO 2.2 % (0-6); HEMOGLOBIN 13.9 g/dL (12.0-16.0); IMMATURE GRAN ABSOLUTE AUTO 0.03 10^3/uL (0.00-0.49); IMMATURE GRAN PERCENT AUTO 0.2 % (0.0-4.9); LYMPHOCYTES ABSOLUTE AUTO 1.42 10^3/uL (0.60-5.00); LYMPHOCYTES PERCENT AUTO 7.1 % (24-44); MEAN CORPUSCULAR HEMOGLOBIN 32.7 pg (27.0-32.0); MEAN CORPUSCULAR HGB CONC 33.1 g/dL (32.0-36.0); MEAN CORPUSCULAR VOLUME 98.8 fL (83.0-97.0); NEUTROPHILS ABSOLUTE AUTO 16.32 x10^3/uL (1.80-8.00); NEUTROPHILS PERCENT AUTO 82.1 % (41-71); PLATELET COUNT,PLT 257 10^3/uL (150-400); RED BLOOD CELL COUNT 4.25 x10^6/uL (4.00-5.50); WHITE BLOOD CELL COUNT,WBC 19.9 10^3/uL (4.0-11.0)
[2024-04-26] MEDS: methylPREDNISolone Sodium Succinate 125 MG/2 ML SDV IM STA (11:19)
[2024-04-26 11:24] LABS: ALBUMIN 3.4 g/dL (3.4-5.0); BILIRUBIN TOTAL 0.5 mg/dL (0.0-1.0); C-REACTIVE PROTEIN 11.75 mg/dL (<=0.50); CALCIUM 10.1 mg/dL (8.4-10.1); CREATININE 0.8 mg/dL (0.6-1.0); EST CRCL DRUG DOSING (CG) 57.31 mL/min; POTASSIUM,K 4.6 mEq/L (3.5-5.0); PROTEIN TOTAL,TP 7.5 g/dL (6.4-8.2)
== END 2024-04-26 12:10 | disposition home or self-care (01) ==
LOC: CC.ED 10:47
DX: J15.3 Pneumonia due to streptococcus, group B (principal); J44.1 Chronic obstructive pulmonary disease with (acute) exacerbation
CPT/HCPCS: 36415; 71046; 80053; 85025; 86140; 87428-QW; 94640; 96372; 99285; J2919; J7620-GY

== ENCOUNTER 2024-09-04 11:26 | Inpatient (IN) | payer MEDICARE, OTHER ==
[2024-09-04] MEDS ORDERED: Ondansetron 4 MG Tab.DIS PO PRN (12:24)
[2024-09-04] MEDS ORDERED: Acetaminophen 325 MG Tab PO PRN (12:24)
[2024-09-04] MEDS ORDERED: Ondansetron 4 MG/2 ML SDV IV PRN (12:24)
[2024-09-04] MEDS ORDERED: Docusate Sodium 100 MG Cap PO PRN (12:24)
[2024-09-04] MEDS ORDERED: Polyethylene Glycol 3350 Powder 17 GM Packet PO PRN (12:24)
[2024-09-04] MEDS ORDERED: SPACER MC SCH (12:45)
[2024-09-04] MEDS ORDERED: Zinc Sulfate 220 MG Cap PO PRN (13:02)
[2024-09-04] MEDS: methylPREDNISolone Sodium Succinate 125 MG/2 ML SDV IVPUSH STA (13:14)
[2024-09-04] MEDS: Albuterol 0.083% 2.5 MG/3 ML Neb Soln NEB PRN (13:15)
[2024-09-04] MEDS: Azithromycin 250 MG Tab PO ONE (13:15)
[2024-09-04] MEDS: cefTRIAXone 1 GM Vial IVPUSH SCH (13:15)
[2024-09-04] MEDS: Sodium Chloride 0.9% 500 ML IV ONE (13:16)
[2024-09-04] MEDS: Albuterol/Ipratropium 3.0-0.5 MG/3 ML Neb Soln NEB SCH (16:12)
[2024-09-04] MEDS: Enoxaparin 40 MG/0.4 ML Syringe SUBCUT SCH (19:24)
[2024-09-04] MEDS: Formoterol/Mometasone 100-5 MCG 8.8 GM Inhaler INH SCH (19:24)
[2024-09-04] MEDS: buPROPion 150 MG Tab.ER PO SCH (19:24)
[2024-09-05] MEDS: Levothyroxine 112 MCG Tab PO SCH (06:09)
[2024-09-05 07:36] LABS: BASOPHILS ABSOLUTE AUTO 0.02 10^3/uL (0.00-0.50); BASOPHILS PERCENT AUTO 0.3 % (0-1); EOSINOPHILS ABSOLUTE AUTO 0.02 10^3/uL (0.00-1.50); EOSINOPHILS PERCENT AUTO 0.3 % (0-6); HEMATOCRIT 41.2 % (37.0-47.0); HEMOGLOBIN 13.5 g/dL (12.0-16.0); IMMATURE GRAN ABSOLUTE AUTO 0.02 10^3/uL (0.00-0.49); IMMATURE GRAN PERCENT AUTO 0.3 % (0.0-4.9); LYMPHOCYTES ABSOLUTE AUTO 1.33 10^3/uL (0.60-5.00); LYMPHOCYTES PERCENT AUTO 17.5 % (24-44); MEAN CORPUSCULAR HEMOGLOBIN 31.9 pg (27.0-32.0); MEAN CORPUSCULAR HGB CONC 32.8 g/dL (32.0-36.0); MEAN CORPUSCULAR VOLUME 97.4 fL (83.0-97.0); MONOCYTES ABSOLUTE AUTO 0.84 10^3/uL (0.00-1.50); NEUTROPHILS ABSOLUTE AUTO 5.38 x10^3/uL (1.80-8.00); NEUTROPHILS PERCENT AUTO 70.6 % (41-71); PLATELET COUNT,PLT 220 10^3/uL (150-400); RED BLOOD CELL COUNT 4.23 x10^6/uL (4.00-5.50); WHITE BLOOD CELL COUNT,WBC 7.6 10^3/uL (4.0-11.0)
[2024-09-05 07:42] LABS: CALCIUM 10.4 mg/dL (8.4-10.1); CREATININE 0.9 mg/dL (0.6-1.0); EST CRCL DRUG DOSING (CG) 50.94 mL/min
[2024-09-05] MEDS: methylPREDNISolone Sodium Succinate 40 MG/1 ML SDV IVPUSH SCH (08:02)
[2024-09-05] MEDS: Azithromycin 250 MG Tab PO SCH (08:06)
[2024-09-05] MEDS: Aspirin 81 MG Tab.EC PO SCH (08:06)
[2024-09-05] MEDS: Cyanocobalamin (Vitamin B12) 1,000 MCG Tab PO SCH (08:06)
== END 2024-09-05 11:55 | disposition home or self-care (01) | DRG 191 ==
LOC: UNDOADMIN 11:26 → CC.MS 11:26
PROVIDERS: ADMIT Nurse Practitioner; ATTEND Nurse Practitioner
DX: J44.1 Chronic obstructive pulmonary disease with (acute) exacerbation (principal); E87.20 Acidosis, unspecified; J44.0 Chronic obstructive pulmonary disease with (acute) lower respiratory infection; M19.90 Unspecified osteoarthritis, unspecified site; E89.0 Postprocedural hypothyroidism; Z79.82 Long term (current) use of aspirin; Z87.891 Personal history of nicotine dependence; Z90.49 Acquired absence of other specified parts of digestive tract; Z98.51 Tubal ligation status; Z79.899 Other long term (current) drug therapy
CPT/HCPCS: 36415; 80048; 83605; 83735; 85025; 87070; 87205; 94640; 97161-GP; 99223; 99238; A9270-GY; J0696; J1650; J2919; J7040